=== PATIENT | female | born 1970 | race African-American/Black ===

== ENCOUNTER → 2016-09-17 | Outpatient (CLI) | payer OTHER ==
[2016-05-04 14:58] VITALS: BP 106/65
[~2016-09-17] MED LIST: BACL10TA PO; GABA600T2 PO; HYDR25TA9 PO; LEVO150T5 PO; LISI-334 PO; META800T21 PO; METH-37 PO; METH-38 PO; OXYM10TA28 PO; OXYM40TA PO; TIZA4CAP PO; TIZA4TAB PO; TOPI100T39 PO
--- NOTE | 2016-09-17 12:42 | KCIC ---
PROCEDURE MR of the right shoulder HISTORY Right shoulder pain and stiffness. TECHNIQUE Standard multiplanar sequences are obtained. COMPARISON None FINDINGS Acromioclavicular joint is mildly degenerative. Diffuse rotator cuff tendon thickening and signal compatible with tendinosis. Deep linear undersurface tear of the anterior supraspinatus footprint, 90 percent across. Measures 1 cm in AP diameter. No definite complete through and through violation of the bursal air or retraction. No evidence of subscapularis tendon tear. Trace fluid in the subdeltoid bursa. No evidence of a labral tear. No paralabral cyst. No acute articular cartilage defect. No significant joint effusion. The biceps tendon is intact. No bone lesion or acute fracture. No acute soft tissue injury. IMPRESSION Generalized rotator cuff tendinosis. Small but very deep undersurface tear of the anterior supraspinatus tendon. Electronically signed by: Sabas Haas MD (Sep 17, 2016 12:40:37)
== END | disposition home or self-care (01) ==
LOC: KCIC MRI 08:39
PROVIDERS: ATTEND Orthopaedic Surgery
DX: M25.511 Pain in right shoulder (principal); M25.611 Stiffness of right shoulder, not elsewhere classified
CPT/HCPCS: 73221

== ENCOUNTER 2017-01-05 04:59 | Emergency (ER) | payer OTHER ==
[~2017-01-05] VITALS: Ht 160 cm; Wt 113.4 kg
[2017-01-05] MEDS ORDERED: fentaNYL PF VIAL 100 MCG/2 ML VIAL IV PRN (05:30)
[2017-01-05] MEDS ORDERED: IV NORMAL SALINE 1000ML BAG 1,000 ML IV ONE (05:30)
[2017-01-05 05:31] LABS: NEG OBC UR NEG; POS OBC UR POS
[2017-01-05 05:35] LABS: BILIRUBIN,URINE NEGATIVE (NEG); GLUCOSE,URINE NEGATIVE (NEG); NITRITE,URINE POSITIVE (NEG); PH,URINE 6.5; PROTEIN,URINE 100 mg/dL (NEG-TRACE)
[2017-01-05 05:37] LABS: BASO # 0.1 x10^3/uL (0.0-0.2); BASO % 1 % (0-3); EOS % 2 % (0-3); HEMATOCRIT 40.9 % (36.0-47.0); HEMOGLOBIN 13.8 g/dL (12.0-15.5); LYMPH # 2.3 x10^3/uL (1.0-4.8); LYMPH % 23 % (24-48); MEAN CORPUSCULAR HEMOGLOBIN 32 pg (25-35); MEAN CORPUSCULAR HGB CONC 34 g/dL (31-37); MEAN CORPUSCULAR VOLUME 95 fL (79-100); MONO % 7 % (0-9); NEUT % 68 % (31-73); PLATELET COUNT 242 x10^3/uL (140-400); RED BLOOD COUNT 4.32 x10^6/uL (3.50-5.40); RED CELL DISTRIBUTION WIDTH 14.1 % (11.5-14.5); WHITE BLOOD COUNT 10.3 x10^3/uL (4.0-11.0)
[2017-01-05] MEDS ORDERED: CONTRAST GIVEN MC PRN (05:45)
[2017-01-05 05:49] LABS: BACTERIA,URINE MANY /HPF (0-FEW); RBC,URINE TNTC /HPF (0-2); WBC,URINE TNTC /HPF (0-4)
[2017-01-05 05:52] LABS: CALCIUM 8.5 mg/dL (8.5-10.1); CREATININE 0.9 mg/dL (0.6-1.0); GFR 80.9; POTASSIUM 3.4 mmol/L (3.5-5.1)
[2017-01-05 05:57] LABS: ALBUMIN 3.2 g/dL (3.4-5.0); ALBUMIN/GLOBULIN RATIO 0.7 (1.0-1.7); TOTAL BILIRUBIN 0.1 mg/dL (0.2-1.0); TOTAL PROTEIN 7.8 g/dL (6.4-8.2)
--- NOTE | 2017-01-05 05:58 | PHYS DOC ---
Past Medical History Past Medical History: Fibromyalgia, Hypertension, Other Additional Past Medical Histor: GRAVES DX Past Surgical History: Cholecystectomy, Other Additional Past Surgical Histo: BACK SX , RIGHT ROTATOR CUFF Alcohol Use: Rarely Drug Use: None Adult General Chief Complaint Chief Complaint: ABDOMINAL PAIN HPI HPI Patient is a 46 year old female who presents with right lower quadrant abdominal pain. The patient reports onset of symptoms 3 days ago. Reports nausea, hematuria. Denies fevers/chills, vomiting, diarrhea, constipation, dysuria, vaginal bleeding or discharge. She reports previous history of UTI but states this feels different. History of cholecystectomy. Review of Systems Review of Systems Constitutional: Denies fever or chills HENT: Denies nasal congestion or sore throat Respiratory: Denies cough or shortness of breath Cardiovascular: Denies chest pain GI: Reports abdominal pain, nausea, denies vomiting, bloody stools or diarrhea : Denies dysuria, reports hematuria Musculoskeletal: Denies back pain or joint pain Integument: Denies rash or skin lesions Neurologic: Denies headache, focal weakness or sensory changes Current Medications Current Medications Current Medications Medications (Trade) Dose Ordered Sig/Milton Start Time Stop Time Status Last Admin Dose Admin Ceftriaxone Sodium 50 ml @ 100 mls/hr 1X ONCE 01/05/17 06:15 01/05/17 06:44 DC 01/05/17 06:35 100 MLS/HR Fentanyl Citrate (Fentanyl 2ml Vial) 50 mcg PRN Q15MIN PRN 01/05/17 05:30 01/06/17 05:29 01/05/17 06:01 50 MCG Info (Do NOT chart on this entry -- for MONITORING) 1 each PRN DAILY PRN 01/05/17 05:45 01/07/17 05:44 Iohexol (Omnipaque 300 Mg/ml) 75 ml 1X ONCE 01/05/17 06:00 01/05/17 06:01 DC 01/05/17 06:11 75 ML Ondansetron HCl (Zofran) 4 mg 1X ONCE 01/05/17 06:00 01/05/17 06:01 DC 01/05/17 06:01 4 MG Potassium Chloride (Klor-Con) 40 meq 1X ONCE 01/05/17 07:15 01/05/17 07:16 UNV Sodium Chloride 1,000 ml @ 1,000 mls/hr 1X ONCE 01/05/17 05:30 01/05/17 06:29 DC 01/05/17 06:01 1,000 MLS/HR Allergies Allergies Allergies Coded Allergies Type Severity Reaction Last Updated Verified No Known Drug Allergies 10/06/13 No Physical Exam Physical Exam Constitutional: obese, no acute distress, non-toxic appearance. HENT: Normocephalic, atraumatic, bilateral external ears normal, oropharynx moist, nose normal. Eyes: conjunctiva normal, no discharge. Neck: supple, no stridor. Cardiovascular: RRR, no murmurs, no edema. Lungs & Thorax: LCTAB, no wheezing, no respiratory distress. Abdomen: normal bowel sounds, soft, RLQ tenderness with guarding, no rebound tenderness, no masses or pulsatile masses, nondistended. : normal appearing female external genitalia, normal appearing cervix with closed os, small amount of white discharge in vaginal vault, no CMT, no adnexal mass, right adnexal tenderness is present. Skin: Warm, dry, no erythema, no rash. Back: No CVA tenderness, right lower back tenderness is present. Extremities: No tenderness, no edema. Neurologic: Alert and oriented X 3, no focal deficits noted. Psychologic: Affect normal, judgement normal, mood normal. Current Patient Data Vital Signs Vital Signs Date Time Temp Pulse Resp B/P (MAP) Pulse Ox O2 Delivery O2 Flow Rate FiO2 01/05/17 07:00 70 111/66 (81) 98 Room Air 01/05/17 05:20 99.0 20 99.0 Lab Values Laboratory Tests Test 01/05/17 05:13 01/05/17 05:25 Urine Collection Type Unknown Urine Color Red Urine Clarity Turbid Urine pH 6.5 Urine Specific [place] 1.015 Urine Protein 100 mg/dL (NEG-TRACE) Urine Glucose (UA) Negative mg/dL (NEG) Urine Ketones (Stick) Trace mg/dL (NEG) Urine Blood Large (NEG) Urine Nitrite Positive (NEG) Urine Bilirubin Negative (NEG) Urine Urobilinogen Dipstick 1.0 mg/dL (0.2 mg/dL) Urine Leukocyte Esterase Large (NEG) Urine RBC Tntc /HPF (0-2) Urine WBC Tntc /HPF (0-4) Urine Bacteria Many /HPF (0-FEW) Urine Test Negative (NEG) White Blood Count 10.3 x10^3/uL (4.0-11.0) Red Blood Count 4.32 x10^6/uL (3.50-5.40) Hemoglobin 13.8 g/dL (12.0-15.5) Hematocrit 40.9 % (36.0-47.0) Mean Corpuscular Volume 95 fL (79-100) Mean Corpuscular Hemoglobin 32 pg (25-35) Mean Corpuscular Hemoglobin Concent 34 g/dL (31-37) Red Cell Distribution Width 14.1 % (11.5-14.5) Platelet Count 242 x10^3/uL (140-400) Neutrophils (%) (Auto) 68 % (31-73) Lymphocytes (%) (Auto) 23 % (24-48) L Monocytes (%) (Auto) 7 % (0-9) Eosinophils (%) (Auto) 2 % (0-3) Basophils (%) (Auto) 1 % (0-3) Neutrophils # (Auto) 7.0 x10^3uL (1.8-7.7) Lymphocytes # (Auto) 2.3 x10^3/uL (1.0-4.8) Monocytes # (Auto) 0.7 x10^3/uL (0.0-1.1) Eosinophils # (Auto) 0.2 x10^3/uL (0.0-0.7) Basophils # (Auto) 0.1 x10^3/uL (0.0-0.2) Sodium Level 139 mmol/L (136-145) Potassium Level 3.4 mmol/L (3.5-5.1) L Chloride Level 104 mmol/L (98-107) Carbon Dioxide Level 26 mmol/L (21-32) Anion Gap 9 (6-14) Blood Urea Nitrogen 21 mg/dL (7-20) H Creatinine 0.9 mg/dL (0.6-1.0) Estimated GFR (Cockcroft-Gault) 80.9 BUN/Creatinine Ratio 23 (6-20) H Glucose Level 86 mg/dL (70-99) Calcium Level 8.5 mg/dL (8.5-10.1) Total Bilirubin 0.1 mg/dL (0.2-1.0) L Aspartate Amino Transferase (AST) 10 U/L (15-37) L Alanine Aminotransferase (ALT) 15 U/L (14-59) Alkaline Phosphatase 45 U/L (46-116) L Total Protein 7.8 g/dL (6.4-8.2) Albumin 3.2 g/dL (3.4-5.0) L Albumin/Globulin Ratio 0.7 (1.0-1.7) L Laboratory Tests 01/05/17 05:25 Laboratory Tests 01/05/17 05:25 Microbiology 01/05/17 Wet Prep - Final, Complete EKG EKG [] Radiology/Procedures Radiology/Procedures INDICATION: Abdomen pain. COMPARISON: None TECHNIQUE: Axial CT images obtained through the abdomen and pelvis. Intravenous contrast was utilized. One or more of the following individualized dose reduction techniques were utilized for this examination: 1. Automated exposure control; 2. Adjustment of the mA and/or kV according to patient size; 3. Use of iterative reconstruction technique. FINDINGS: Abdominal aorta not aneurysmal. There may be a small hiatal hernia. Small fat containing inguinal hernias. No intrahepatic bile duct dilation. No peripancreatic edema. Spleen unremarkable. There is some mild distension of the right ureter with subtle indistinctness of the adjacent fat. Calcification in uterus, could be fibroid. The appendix does not appear inflamed. No definite evidence of small bowel obstruction. Bladder unremarkable within limits of CT. Degenerative changes of spine. IMPRESSION: The appendix does not appear inflamed. There is prominence of the right ureter with some adjacent indistinctness of the fat. Would correlate with symptoms within the region. This could be seen with causes such as recently passed right ureter stone or infectious causes such as ureteritis. Electronically signed by: Luis Murray (January 05, 2017 07:00:19) DICTATED and SIGNED BY: LUIS MURRAY MD DATE: 01/05/17 0700 Course & Med Decision Making Course & Med Decision Making Pertinent Labs and Imaging studies reviewed. (See chart for details) The patient presents with abdominal pain. Gave IV fluids, pain medication, antiemetics. Obtained labs, UA, CT. UA shows blood & infection. Will give rocephin here. She is awaiting CT abdomen/pelvis for appendicitis. Will transfer care to Dr. Sage to follow-up results and disposition patient accordingly. She is in stable condition at time of transfer care. Alek SAGE: Patient with CT that shows no acute surgical process but she does have findings consistent with passed stone or pyelonephritis. Her pain is much improved here and she is able tolerate fluids by mouth, difficulty. Patient was given a dose of IV Rocephin here and given she appears well with normal vital signs benign physical exam and there is no signs of an infected stone on the CT she will be discharged with Percocet Zofran Levaquin instructed to drink plenty of fluids and come back to the ER sooner with any worsening pain fevers vomiting or other general concerns. Patient aware and agreeable with plan for discharge and verbalized understanding of the need for short-term follow-up and strict ER return precautions discussed as above. Dragon Disclaimer Dragon Disclaimer This electronic medical record was generated, in whole or in part, using a voice recognition dictation system. Departure Departure Impression: Primary Impression: Pyelonephritis Additional Impressions: Abdominal pain Hypokalemia Disposition: HOME, SELF-CARE Condition: GOOD Referrals: IDA MCCRARY MD (PCP) Patient Instructions: Pyelonephritis, Adult Additional Instructions: MAKE SURE THAT YOU ARE DRINKING PLENTY OF FLUIDS AND EATING A GOOD DIET. TAKE 400MG OF IBUPROFEN EVERY 6 HOURS FOR PAIN AND THE PERCOCET FOR BREAKTHROUGH PAIN. COME BACK TO THE ED SOONER WITH ANY NEW OR WORSENING PAIN, FEVERS, VOMITING, OR OTHER GENERAL CONCERNS. THANK YOU! Scripts Ondansetron (ZOFRAN ODT) 4 Mg Tab.rapdis 4 MG PO BID Y for NAUSEA/VOMITING, #10 TAB Prov: NELA SAGE DO 01/05/17 Oxycodone/Apap 5-325 (PERCOCET 5-325 MG TABLET) 1 Each Tablet 1 TAB PO PRN Q6HRS Y for PAIN, #20 TAB 0 Refills Prov: NELA SAGE DO 01/05/17 Levofloxacin (LEVAQUIN) 750 Mg Tablet 1 TAB PO DAILY, #7 TAB Prov: NELA SAGE DO 01/05/17 Problem Qualifiers ALEK CHAMBERS MD January 05, 2017 05:58 NELA SAGE DO January 05, 2017 07:07
[2017-01-05] MEDS ORDERED: ONDANSETRON PF 4 MG/2 ML VIAL. IV ONE (06:00)
[2017-01-05] MEDS ORDERED: IOHEXOL 300 MG/ML 75 ML VIAL IV ONE (06:00)
--- NOTE | 2017-01-05 06:13 | ACF ---
Admission Forms Criteria URINARY COMPLICATIONS Clinical Indications for Inpatient Care (Place 'X' for any and all applicable criteria): Ongoing inpatient care may be indicated for urinary complications with ANY ONE of the following: [ ]I. Urinary tract infection requiring inpatient care as indicated by ANY ONE of the following(8)(19)(20): [ ]a) Severe symptoms (eg, high fever, severe pain) [ ]b) Vomiting or dehydration requiring ongoing inpatient care [ ]c) IV antibiotic needs that cannot be managed at lower level of care [ ]d) Hemodynamic instability [ ]e) Obstruction of collecting system by stone or tumor [ ]II. Urinary retention requiring drainage or surgery (3)(4)(5)(17)(18) [ ]III. Renal failure (Use Renal Failure Criteria for further information.) [ ]IV. Oliguria(30) [ ]V. Post obstructive diuresis requiring close monitoring of urine output and intravenous compensation for excessive fluid losses(33) Extended stay beyond goal length of stay for primary condition may be needed until ALL of the following are present(3)(4)(5)(8): [ ]a) Renal function (creatinine) at baseline, or daily decreases in creatinine consistent with renal function return [ ]b) Voiding adequately or with urinary catheter or percutaneous suprapubic tube and management regimen in place that is performable at lower level of care. [ ]c) Urine output adequate [ ]d) Fever absent or resolving [ ]e) Infection absent or treatable at next level of care The original [employer] content created by [employer] has been revised. The portions of the content which have been revised are identified through the use of italic text or in bold, and [facility] has neither reviewed nor approved the modified material. All other unmodified content is copyright [employer] Please see references footnoted in the original [employer] edition 2016 DANDRE FU January 05, 2017 06:13
[2017-01-05 07:00] VITALS: BP 111/66
--- NOTE | 2017-01-05 07:02 | RAD ---
INDICATION: Abdomen pain. COMPARISON: None TECHNIQUE: Axial CT images obtained through the abdomen and pelvis. Intravenous contrast was utilized. One or more of the following individualized dose reduction techniques were utilized for this examination: 1. Automated exposure control; 2. Adjustment of the mA and/or kV according to patient size; 3. Use of iterative reconstruction technique. FINDINGS: Abdominal aorta not aneurysmal. There may be a small hiatal hernia. Small fat containing inguinal hernias. No intrahepatic bile duct dilation. No peripancreatic edema. Spleen unremarkable. There is some mild distension of the right ureter with subtle indistinctness of the adjacent fat. Calcification in uterus, could be fibroid. The appendix does not appear inflamed. No definite evidence of small bowel obstruction. Bladder unremarkable within limits of CT. Degenerative changes of spine. IMPRESSION: The appendix does not appear inflamed. There is prominence of the right ureter with some adjacent indistinctness of the fat. Would correlate with symptoms within the region. This could be seen with causes such as recently passed right ureter stone or infectious causes such as ureteritis. Electronically signed by: Roel Peralta (January 05, 2017 07:00:19)
[2017-01-05] MEDS ORDERED: OXYC-323 PO (07:15)
[2017-01-05] MEDS ORDERED: POTASSIUM CHLORIDE 20 MEQ TABLET.ER. PO ONE (07:15)
[2017-01-05] MEDS ORDERED: LEVO750T31 PO (07:15)
[2017-01-05] MEDS ORDERED: ONDA4TAB10 PO (07:15)
== END 2017-01-05 07:25 | disposition home or self-care (01) ==
LOC: ER 04:59
DX: N12 Tubulo-interstitial nephritis, not specified as acute or chronic (principal); E87.6 Hypokalemia; M79.7 Fibromyalgia; I10 Essential (primary) hypertension; E05.00 Thyrotoxicosis with diffuse goiter without thyrotoxic crisis or storm; Z90.49 Acquired absence of other specified parts of digestive tract
CPT/HCPCS: 36415; 74177; 80053; 81001; 81025; 85027; 87086; 87491; 87591; 96361; 96365; 96375; 99285; J0690; J2405; J3010; J7030; Q0111; Q9967

== ENCOUNTER → 2017-03-10 | Outpatient (CLI) | payer OTHER ==
[~2017-03-10] MED LIST changes: +LEVO750T31 PO; +META-21 PO; -META800T21 PO; +ONDA4TAB10 PO; +OXYC-323 PO; -OXYM40TA PO; +OXYM40TA17 PO; -TOPI100T39 PO; +TOPI100T42 PO
--- NOTE | 2017-03-10 13:06 | KCIC ---
MRI Lumbar Spine without contrast History: Low back pain, previous surgery, lumbar radiculopathy Technique: Multiplanar, multi sequential noncontrast MR imaging was performed of the lumbar spine. Contrast: None Comparison: March 17, 2011 Findings: Lumbar vertebral body stature is maintained. There is negligible anterior spondylolisthesis at L4-5. Mild L4-5 degenerative disc disease is greater than previously, again mild disc desiccation at L3-4 and L5-S1. Conus terminates at L1. L1-L2: Spinal canal and the neural foramina are adequate. There is moderate facet hypertrophic change and mild buckling of the ligamentum flavum. L2-L3: There is mild facet hypertrophic change and buckling of the ligamentum flavum. Neural foramina and spinal canal are adequate. L3-L4: There is ojnj-wq-ebzvcchm facet degenerative change and buckling of the ligamentum flavum. Neural foramina and spinal canal are adequate. There is negligible posterior bulge. L4-L5: There is moderate to severe facet degenerative change greater on the right. There is defect of the right lamina. Spinal canal is adequate. Neural foramina are overall adequate. L5-S1: Spinal canal is adequate. There is prominence of epidural fat in the lateral recesses bilaterally. Neural foramina are adequate. There is mild facet hypertrophic change. Impression: 1. There is no significant lumbar spinal stenosis or neural foramina compromise. There is mild degenerative disc disease at L4-5 greater than previously. There is negligible anterior spondylolisthesis at L4-5 at which there is facet degenerative change. Electronically signed by: Samuel Dodson MD (03/10/2017 1:02 PM) [facility]
== END | disposition home or self-care (01) ==
LOC: KCIC MRI 12:14
PROVIDERS: ATTEND Family Medicine
DX: M51.16 Intervertebral disc disorders with radiculopathy, lumbar region (principal); M43.16 Spondylolisthesis, lumbar region
CPT/HCPCS: 72148

== ENCOUNTER → 2017-06-22 | Outpatient (CLI) | payer OTHER ==
[~2017-06-22] MED LIST changes: +IOHEXOL 240 MG/ML 50ML VIAL. PO ONE; +IOHEXOL 300 MG/ML 100ML VIAL. IV ONE
--- NOTE | 2017-06-22 11:56 | KCIC ---
CT abdomen and pelvis with contrast Indication: . Abdomen pain for months. Left-sided pain. Bloating, nausea and diarrhea. Cholecystectomy.. Technique: Intravenous contrast is given. Oral contrast was given. Comparison: January 05, 2017. Exposure: One or more of the following individualized dose reduction techniques were utilized for this examination: 1. Automated exposure control 2. Adjustment of the mA and/or kV according to patient size 3. Use of iterative reconstruction technique. FINDINGS: Lower thorax: Small calcified granuloma in the anterior left lung base. Pneumoperitoneum:No gross pneumoperitoneum. Liver: Mildly hypodense, compatible with mild fatty infiltration. Spleen: Unremarkable Pancreas: Unremarkable Adrenals:No evidence of mass. Kidneys:Unremarkable Gallbladder: Surgically absent. Aorta: Abdominal aorta is nonaneurysmal Lymph nodes: No significant enlargement GI tract: Small hiatal hernia. Scattered small diverticula are noted. There is no evidence of pericolonic inflammatory type changes Appendix:Visualized, appears within normal limits. Ascites: No gross ascites. Urinary bladder: Not opacified, but no apparent abnormality. Small calcification in the left uterus, compatible with fibroid. Bones: No destructive process. IMPRESSION: 1. No acute findings in the abdomen or pelvis. 2. Mild hepatic steatosis. Electronically signed by: Sabas Haas MD (06/22/2017 11:53 AM) [facility]
== END | disposition home or self-care (01) ==
LOC: KCIC CT 09:30
PROVIDERS: ATTEND Nurse Practitioner Family
DX: K76.0 Fatty (change of) liver, not elsewhere classified (principal); F17.200 Nicotine dependence, unspecified, uncomplicated
CPT/HCPCS: 74177; Q9966; Q9967

== ENCOUNTER → 2018-04-06 | Outpatient (CLI) | payer OTHER ==
[~2018-04-06] MED LIST changes: -IOHEXOL 240 MG/ML 50ML VIAL. PO ONE; -IOHEXOL 300 MG/ML 100ML VIAL. IV ONE
--- NOTE | 2018-04-06 17:07 | KCIC ---
MR of the right hip Indication: Right hip pain in recent months. Abductor tendinitis. Technique: Standard multiplanar sequences are obtained. Findings: Artifact: No significant image degradation. Bones: No bone lesion, acute fracture or acute bone marrow edema. No femoral head osteonecrosis. Effusion: No significant effusion Cartilage: No evidence of acute cartilage defect or advanced DJD. Labrum: No evidence of labral tear or para labral cyst Gluteus minimus tendon: Intact Gluteus medius tendon: Intact Hamstring tendon: Intact Iliopsoas tendon: Intact Rectus femoris tendon attachment:Intact Soft tissue:No significant acute findings. Large kjcdj-es-kozo coronal survey sequence demonstrates no additional acute findings in the qjhaa-wj-cyys. Impression: No acute findings or internal derangement. MR of the left hip Indication: Left hip pain for over one year. Abductor tendinitis. Technique: Standard multiplanar sequences are obtained. Findings: Artifact: No significant image degradation. Bones: No bone lesion, acute fracture or acute bone marrow edema. No femoral head osteonecrosis. Effusion: No significant effusion Cartilage: No evidence of acute cartilage defect or advanced DJD. Labrum: No evidence of labral tear or para labral cyst Gluteus minimus tendon: Minimal signal adjacent to the insertion may indicate mild tendinosis, but the tendon itself is intact. Gluteus medius tendon: Minimal signal adjacent to the insertion. Hamstring tendon: Intact Iliopsoas tendon: Intact Rectus femoris tendon attachment:Intact Soft tissue: Multiple heterogeneous nodules within the uterus, would most typically represent fibroids. Cystic-type lesions identified in the region of the cervix and lower uterine segment, likely nabothian cysts. Impression: 1. Findings suggest very mild left gluteus minimus and medius tendinosis, without tear. 2. Uterine heterogeneity with nodules, would most commonly be due to fibroids. Electronically signed by: Sabas Haas MD (04/06/2018 5:03 PM) [facility]
--- NOTE | 2018-04-06 17:07 | KCIC ---
MR of the right hip Indication: Right hip pain in recent months. Abductor tendinitis. Technique: Standard multiplanar sequences are obtained. Findings: Artifact: No significant image degradation. Bones: No bone lesion, acute fracture or acute bone marrow edema. No femoral head osteonecrosis. Effusion: No significant effusion Cartilage: No evidence of acute cartilage defect or advanced DJD. Labrum: No evidence of labral tear or para labral cyst Gluteus minimus tendon: Intact Gluteus medius tendon: Intact Hamstring tendon: Intact Iliopsoas tendon: Intact Rectus femoris tendon attachment:Intact Soft tissue:No significant acute findings. Large qiwan-qr-[id number] coronal survey sequence demonstrates no additional acute findings in the aymeu-mj-[id number]. Impression: No acute findings or internal derangement. MR of the left hip Indication: Left hip pain for over one year. Abductor tendinitis. Technique: Standard multiplanar sequences are obtained. Findings: Artifact: No significant image degradation. Bones: No bone lesion, acute fracture or acute bone marrow edema. No femoral head osteonecrosis. Effusion: No significant effusion Cartilage: No evidence of acute cartilage defect or advanced DJD. Labrum: No evidence of labral tear or para labral cyst Gluteus minimus tendon: Minimal signal adjacent to the insertion may indicate mild tendinosis, but the tendon itself is intact. Gluteus medius tendon: Minimal signal adjacent to the insertion. Hamstring tendon: Intact Iliopsoas tendon: Intact Rectus femoris tendon attachment:Intact Soft tissue: Multiple heterogeneous nodules within the uterus, would most typically represent fibroids. Cystic-type lesions identified in the region of the cervix and lower uterine segment, likely nabothian cysts. Impression: 1. Findings suggest very mild left gluteus minimus and medius tendinosis, without tear. 2. Uterine heterogeneity with nodules, would most commonly be due to fibroids. Electronically signed by: Sabas Haas MD (04/06/2018 5:03 PM) [facility]
== END | disposition home or self-care (01) ==
LOC: KCIC MRI 11:42
PROVIDERS: ATTEND Orthopaedic Surgery Sports Medicine
DX: M76.891 Other specified enthesopathies of right lower limb, excluding foot (principal); M76.892 Other specified enthesopathies of left lower limb, excluding foot; I10 Essential (primary) hypertension; E87.6 Hypokalemia; N85.8 Other specified noninflammatory disorders of uterus; Z87.891 Personal history of nicotine dependence; Z90.49 Acquired absence of other specified parts of digestive tract
CPT/HCPCS: 73721

== ENCOUNTER → 2018-10-04 | Day surgery (SDC) | payer OTHER ==
[~2018-10-04] MED LIST changes: +BETH5TAB PO; -GABA600T2 PO; +GABA600T7 PO; +HYDR-2145 PO; -HYDR25TA9 PO; +IV RINGERS,LACTATED 1000ML 1,000 ML IV SCH; +LEVO112T4 PO; +LIDOCAINE 1% PF 2 ML VIAL. ID PRN; +LISI1TAB7 PO; +MIDAZOLAM HCL/PF 2 MG/2 ML VIAL. IV PRN; -OXYC-323 PO; +OXYC1TAB15 PO; +PANT40GR PO; +PROPOFOL 20 ML IV ONE; -TIZA4TAB PO; +TIZA4TAB2 PO; +TRAZ-118 PO; +fentaNYL PF VIAL 100 MCG/2 ML VIAL IV PRN
--- NOTE | 2018-10-04 13:00 | PDOC1 ---
History and Physical Date of Admission Date of Admission DATE: 10/04/18 TIME: 12:51 Source Source: Chart review, Patient History of Present Illness History of Present Illness 48 y/o female recently evaluated at [facility] for chest pain; catheterization negative for coronary disease. H/o reflux esophagitis, though ongoing issues. Requests further evaluation. Diarrhea since cholecystectomy; better with recent addition of Colestid. Historically normal colonoscopy at [facility] last year. Past Medical History Cardiovascular: HTN GI: Diverticulosis Psych: Anxiety Musculoskeletal: Osteoarthritis Endocrine: Hyperthyroidism, Hypothyroidism Past Surgical History Past Surgical History: Arthroscopy, Cholecystectomy, Other (thyroidectomy) Family History Family History: Coronary Artery Disease Social History ALCOHOL: occassional Drugs: None Current Medications Current Medications Active Scripts Active Bethanechol Chloride 5 Mg Tablet 5 Mg PO PRN BFRMEAL PRN 30 Days Reported Tizanidine Hcl 4 Mg Tablet 4 Mg PO TID PRN Protonix (Pantoprazole Sodium) 40 Mg Granpkt.dr 40 Mg PO BID Trazodone Hcl 50 Mg Tablet 50 Mg PO QHS Levothyroxine Sodium 112 Mcg Tablet 112 Mcg PO DAILY Lisinopril-Hctz 20-25 Mg Tab (Lisinopril/Hydrochlorothiazide) 1 Each Tablet 20- 25 Mg PO DAILY Allergies Allergies: Coded Allergies: No Known Drug Allergies (Unverified , 10/04/18) ROS Review of System Otherwise negative. Physical Exam General: Alert, Oriented X3, Cooperative, No acute distress Lungs: Clear to auscultation Heart: S1S2, RRR, no gallops, no murmurs Abdomen: Normal bowel sounds, Soft, No tenderness, No hepatosplenomegaly, No masses Rectal Exam: not examined Extremities: No cyanosis, No edema Skin: No significant lesion Neuro: Normal gait, Normal speech, Strength at 5/5 X4 ext, Normal tone, Sensation intact, Cranial nerves 3-12 NL, Reflexes 2+ Psych/Mental Status: Mental status NL, Mood NL VTE Prophylaxis Ordered VTE Prophylaxis Devices: No VTE Pharmacological Prophylaxi: No Assessment/Plan Assessment/Plan IMP: NCCP/GERD PLAN: EGD. ISABEL FRANK MD Oct 04, 2018 13:00
--- NOTE | 2018-10-04 13:25 | PDOC4 ---
PROCEDURE Procedure EGD/biopsies Indication: NCCP/GERD Meds: per anesthesia Findings: E--Healed esophagitis, baseline grade indeterminate, at 40cm. G--Mild patchy erythema, pre-pyloric, biopsied. D--Normal to second portion. Shilpa. well. IMP: Reflux esophagitis, healed, but with persistent symptoms. Non-specific pre-pyloric erythema REC: Continue PPI; only a week on better dosing and may take longer for noticeable response. Await biopsies. F/u in 2 weeks. If no/poor response to better dosing of PPI, consider GES. ISABEL FRANK MD Oct 04, 2018 13:25
[2018-10-04 13:48] VITALS: BP 131/78
--- NOTE | 2018-10-05 16:07 | PATHOLOGY ---
[facility] Accession Number: [id number] . 01 Material submitted: . ANTRUM BIOSPY . 01 Clinical history: . Noncardiac chest pain . 02 Diagnosis: Gastric biopsy, antrum: - Mild superficial chronic gastritis. [facility]/10/05/2018 . 02 Comment: Sections of the gastric biopsy reveal segments of gastric body and antral/body transition mucosa showing focal congestion and mild superficial chronic inflammation. A properly controlled immunoperoxidase stain for Helicobacter is negative for Helicobacter organisms. (JPM:pit 10/05/2018) . Special stain performed: Immunoperoxidase for Helicobacter . 02 Electronically signed: . Anthony Welsh MD, Pathologist NPI- [id number] . 01 Gross description: . Received in formalin labeled "Benz, Amarilys, antrum BX," are 2 segments of russell soft tissue measuring 1.2 x 0.2 x 0.2 cm in aggregate dimensions and ranging from 0.5 to 0.7 cm in maximum dimension. The specimen is submitted entirely in cassette A1. (TSD; 10/04/2018) TOB/TOB . 02 Pathologist provided ICD-10: K29.30 . 02 CPT . 820614 Specimen Comment: A courtesy copy of this report has been sent to Specimen Comment: [phone], . Specimen Comment: Report sent to / DR MCCRARY Specimen Comment: A duplicate report has been generated due to demographic updates. Performed at: 01 [facility] [address] [id number] MD Nimesh Jon MD Phone: [phone] Performed at: 02 [facility] [address] [place], [place] [id number] MD Atnhony Welsh MD Phone: [phone]
== END | disposition home or self-care (01) ==
LOC: SURG 12:41
PROVIDERS: ATTEND Internal Medicine Gastroenterology
DX: K29.30 Chronic superficial gastritis without bleeding (principal); K21.0 Gastro-esophageal reflux disease with esophagitis; K31.89 Other diseases of stomach and duodenum; I10 Essential (primary) hypertension; M79.7 Fibromyalgia; K58.9 Irritable bowel syndrome, unspecified; M19.90 Unspecified osteoarthritis, unspecified site; Z85.850 Personal history of malignant neoplasm of thyroid; Z82.49 Family history of ischemic heart disease and other diseases of the circulatory system; Z83.79 Family history of other diseases of the digestive system; F17.210 Nicotine dependence, cigarettes, uncomplicated; Z72.89 Other problems related to lifestyle; Z79.899 Other long term (current) drug therapy
CPT/HCPCS: 43239; J2704; 88305

== ENCOUNTER → 2018-10-22 | Outpatient (CLI) | payer OTHER ==
[2018-10-04 13:48] VITALS: BP 131/78
[~2018-10-22] MED LIST changes: -IV RINGERS,LACTATED 1000ML 1,000 ML IV SCH; -LIDOCAINE 1% PF 2 ML VIAL. ID PRN; -MIDAZOLAM HCL/PF 2 MG/2 ML VIAL. IV PRN; -PROPOFOL 20 ML IV ONE; +TIZA4TAB PO; -TIZA4TAB2 PO; -fentaNYL PF VIAL 100 MCG/2 ML VIAL IV PRN
--- NOTE | 2018-10-22 17:28 | KCIC ---
Chest, PA and Lateral: Technique: PA and lateral views of the chest were obtained. History: Chest pain, respiratory tract infection. Comparison: 09/17/2018. Findings: Low lung volumes and technique accentuates heart size and pulmonary vascularity. Mild cardiomegaly. There is mild prominent appearing bilateral interstitial lung markings. Mild bibasilar lung airspace opacities likely atelectasis or infiltrates. IMPRESSION: 1. Probable mild congestive changes. 2. Mild bibasilar lung airspace opacities likely atelectasis or infiltrates. Electronically signed by: Jefferson Henning MD (10/22/2018 5:25 PM) [facility]
== END | disposition home or self-care (01) ==
LOC: KCIC 14:54
PROVIDERS: ATTEND Family Medicine
DX: J06.9 Acute upper respiratory infection, unspecified (principal); I51.7 Cardiomegaly; R91.8 Other nonspecific abnormal finding of lung field
CPT/HCPCS: 71046

== ENCOUNTER → 2018-11-11 | Outpatient (CLI) | payer OTHER ==
[2018-10-04 13:48] VITALS: BP 131/78
--- NOTE | 2018-11-11 14:18 | RAD ---
Gastric Emptying Study 11/11/2018 Indication: Gastroesophageal reflux disease Procedure: Anterior and posterior projection static images are obtained over the stomach following oral administration of 2 mCi of 99 M technetium sulfur colloid in a solid meal.Time points include an immediate baseline, and 1, 2, 3, and 4 hours post ingestion. Findings: There is progressive emptying of the stomach on sequential images. Percentage retention at... One hour is 26% (normal 34.8-91%). Two hours 7% (normal 2.7-60%). Three hours 3% (normal 0.5-28%). Four hours 0% (normal 0-10%). Impression: 1.Mildly rapid emptying at 1 hour time point. Correlate with clinical evidence of developing syndrome. 2. Otherwise normal gastric emptying times. Consensus Recommendations for Gastric Emptying Scintigraphy: A Joint Report of the [place] [employer] Society and the Society of Nuclear Medicine: J. Nucl. Med. Technol. October 2007 vol. 36 no. 1 44-54 Grading for severity of delayed GE based on the 4-h value: grade 1 (mild): 11?20% retention at 4 h grade 2 (moderate): 21?35% retention at 4 h grade 3 (severe): 36?50% retention at 4 h grade 4 (very severe): >50% retention at 4 h. Electronically signed by: Tate Murdock MD (11/11/2018 2:15 PM) [facility]
== END | disposition home or self-care (01) ==
LOC: NM 10:58
PROVIDERS: ATTEND Internal Medicine Gastroenterology
DX: K21.9 Gastro-esophageal reflux disease without esophagitis (principal)
CPT/HCPCS: 78264; A9541

== ENCOUNTER → 2019-03-29 | Outpatient (CLI) | payer OTHER ==
[2018-10-04 13:48] VITALS: BP 131/78
[~2019-03-29] MED LIST changes: -TIZA4TAB PO; +TIZA4TAB2 PO
--- NOTE | 2019-03-29 15:52 | RAD ---
EXAM: Left upper extremity venous Doppler sonogram. HISTORY: Neuropathy. Pain. TECHNIQUE: Flores scale and color Doppler sonographic evaluation of the left upper extremity veins with spectral waveform analysis was performed. FINDINGS: There is normal color flow, normal compressibility and there are normal spectral waveforms in the left upper extremity veins. IMPRESSION: No Doppler evidence of left upper extremity venous thrombosis. Electronically signed by: Rama Mott MD (03/29/2019 3:49 PM) [place] [id number]
== END | disposition home or self-care (01) ==
LOC: US 14:19
PROVIDERS: ATTEND Nurse Practitioner Family
DX: G62.9 Polyneuropathy, unspecified (principal)
CPT/HCPCS: 93971

== ENCOUNTER → 2020-04-19 | Outpatient (CLI) | payer OTHER ==
[2018-10-04 13:48] VITALS: BP 131/78
[~2020-04-19] MED LIST changes: +CYAN50008 PO; -LEVO112T4 PO; +LEVO112T49 PO; +LISI1TAB20 PO; -LISI1TAB7 PO; +MELO15TA23 PO; +vitamin d PO
== END | disposition home or self-care (01) ==
LOC: LAB 14:29
PROVIDERS: ATTEND Orthopaedic Surgery Sports Medicine
DX: Z20.828 Contact with and (suspected) exposure to other viral communicable diseases (principal)
CPT/HCPCS: U0003-CS

== ENCOUNTER 2020-04-23 06:18 | Day surgery (SDC) | payer OTHER ==
[~2020-04-23] VITALS: Ht 160 cm; Wt 132.0 kg
[~2020-04-23 06:18] MED LIST changes: +ceFAZolin SODIUM 3 GM in IV DEXTROSE 5% 100ML 100 ML IV PRN
[2020-04-23] MEDS ORDERED: LIDOCAINE 2% PF 5 ML VIAL. ONE (06:51)
[2020-04-23] MEDS ORDERED: ONDANSETRON PF 4 MG/2 ML VIAL. ONE (06:51)
[2020-04-23] MEDS ORDERED: PROPOFOL 10 MG/ML (20ML) VIAL. IV ONE ×3 (06:51→08:29)
[2020-04-23] MEDS ORDERED: DEXAMETHASONE SOD PHOS 4 MG/ML VIAL ONE (06:51)
[2020-04-23] MEDS ORDERED: PROCHLORPERAZINE 10 MG/2 ML VIAL. IV PRN (07:00)
[2020-04-23] MEDS ORDERED: LIDOCAINE 1% PF 2 ML VIAL. ID PRN (07:00)
[2020-04-23] MEDS ORDERED: ONDANSETRON PF 4 MG/2 ML VIAL. IV PRN (07:00)
[2020-04-23] MEDS ORDERED: HYDROmorphone 2 MG/ML VIAL IV PRN (07:00)
[2020-04-23] MEDS ORDERED: IV RINGERS,LACTATED 1000ML 1,000 ML IV SCH (07:00)
[2020-04-23] MEDS ORDERED: MORPHINE SULFATE 2 MG/ML VIAL. IV PRN (07:00)
[2020-04-23] MEDS ORDERED: fentaNYL PF VIAL 100 MCG/2 ML VIAL IV PRN (07:00)
[2020-04-23] MEDS ORDERED: LIDOCAINE 1% Multi-Dose 20 ML VIAL. ONE (07:08)
[2020-04-23] MEDS ORDERED: BUPIVACAINE MPF 0.5% 30 ML VIAL. ONE (07:08)
[2020-04-23] MEDS ORDERED: fentaNYL PF VIAL 100 MCG/2 ML VIAL ONE ×2 (07:37→08:57)
[2020-04-23] MEDS ORDERED: FAMOTIDINE 20 MG/2 ML VIAL ONE (08:01)
[2020-04-23] MEDS ORDERED: SEVOFLURANE 61 TO 120 MINUTES. IH ONE (08:23)
--- NOTE | 2020-04-23 08:35 | DISCH ---
DISCHARGE INSTRUCTIONS Condition on Discharge Condition on Discharge: Stable Activity After Discharge Activity Instructions for Disc: Activity as tolerated Bathing Instructions: Shower-keep dressing dry Weight Bearing Status after Di: As tolerated Diet after Discharge Diet after Discharge: Cardiac, Regular Wound Incision Care Wound/Incision Care: Ice to area for comfort, Keep wound/cast CDI, Keep wound elevated Other wound/incision instructi: Okay to change dressing after 2 to 3 days Contacting the DRClaudia after DC Call your doctor for: Concerns you may have Follow-Up Follow up with: David in 2 wks PARUL DAVENPORT II, MD Apr 23, 2020 08:35
--- NOTE | 2020-04-23 08:40 | PDOC4 ---
Operative Note Operative Note Date of procedure: 04/23/2020 Surgeon: Otto Davenport Warp Placer: Clemente Morrow Preoperative diagnosis: Left cubital tunnel syndrome Postoperative diagnosis: Same Procedure performed: Open left cubital tunnel release Anesthesia: General Blood loss: 20 mL Tourniquet time: 21 minutes Complications: None Reason for procedure: Patient is a very pleasant 49-year-old female who is clinical and electromyographic examinations were consistent with the above preoperative diagnosis. She had tried and failed conservative therapies including bracing, anti-inflammatories, and her problem was getting worse. Therefore we had a discussion of the risks, benefits, and alternatives and she wished to proceed. Description of procedure: Patient was greeted in the preoperative holding area where the correct extremity was verified and marked. She is taken to the operative theater antibiotics were started as she was brought back. Once in the operating room, she was transferred gently supine to the operating table and had successful induction of a general anesthetic. We she was then secured to the bed with all pressure points padded. Nonsterile tourniquet was taped in place to her left upper arm. We then proceeded prep and drape left upper extremity in her usual sterile fashion including our preoperative timeout. After this, I palpated marked surface anatomy and zaida a line for my planned incision. Extremity was exsanguinated with an Esmarch and tourniquet insufflated to 250 mmHg. I then incised skin with a scalpel and dissected through her subcutaneous tissue with tenotomy scissors and bipolar cautery. Bipolar cautery was used for hemostasis as I proceeded. I placed a self-retaining retractor and incised f ascia with my tenotomy scissors in line with the skin incision. Identified her ulnar nerve posterior to her medial epicondyle and released the overlying tissue into her triceps. I then released the cubital tunnel distally into the flexor muscle mass with my tenotomy scissors. I then palpated along the course of the nerve with the tip of the tenotomies to help and tried accomplish a complete release and I was confident I had. I then took the elbow through range of motion repeatedly and noted no subluxation of the ulnar nerve. After this, the wound was thoroughly irrigated out with sterile fluid. Inverted interrupted 2 oh was used in a multilayered fashion for wound closure followed by running 3-0 Monocryl in a buried subcuticular fashion. After this, local anesthetic was injected in the hollie-incisional area. The arm was cleansed and dried and a soft bulky dressing was applied from her hand to her axilla. Prior to wound closure, tourniquet had been let down and hemostasis ensured. All counts were correct x2 prior to wound closure as well. Procedure was performed with loupe magnification. At the inclusion, she is awake from anesthesia and transferred gently supine to the recovery cart and taken to PACU in stable and extubated condition. Postoperative plan is to discharge her home. Wound care was discussed and given in written form with her and her family. I will see her joay k in 2 weeks, sooner should a problem arise OTTO DAVENPORT II, MD Apr 23, 2020 08:40
[2020-04-23] MEDS ORDERED: oxyCODONE/APAP 5/325 1 TAB TABLET PO ONE (08:45)
[2020-04-23] MEDS ORDERED: OXYC-325 PO (08:54)
[2020-04-23] MEDS ORDERED: DOCU-109 PO (08:55)
[2020-04-23] MEDS: fentaNYL PF VIAL 100 MCG/2 ML VIAL IV PRN ×2 (09:06→09:16)
[2020-04-23] MEDS ORDERED: ONDA8TAB9 PO/SL (09:08)
[2020-04-23 09:35] VITALS: BP 143/77
== END 2020-04-23 10:40 | disposition home or self-care (01) ==
LOC: SURG 06:18
PROVIDERS: ATTEND Orthopaedic Surgery Sports Medicine
DX: G56.22 Lesion of ulnar nerve, left upper limb (principal); K21.9 Gastro-esophageal reflux disease without esophagitis; F17.210 Nicotine dependence, cigarettes, uncomplicated; Z88.8 Allergy status to other drugs, medicaments and biological substances; Z79.899 Other long term (current) drug therapy
CPT/HCPCS: 64718; 81025; A7015; J1100; J2405; J2704; J3010; J3490

== ENCOUNTER → 2020-05-18 | Outpatient (CLI) | payer OTHER ==
[2020-04-23 09:35] VITALS: BP 143/77
[~2020-05-18] MED LIST changes: +DOCU-109 PO; +ONDA8TAB9 PO/SL; +OXYC-325 PO; +[UNRECOGNIZED DRUG - CODE] PO; -ceFAZolin SODIUM 3 GM in IV DEXTROSE 5% 100ML 100 ML IV PRN
[2020-05-18 13:54] LABS: BASO % 1 % (0-3); EOS # 0.1 x10^3/uL (0.0-0.7); EOS % 2 % (0-3); HEMATOCRIT 40.4 % (36.0-47.0); HEMOGLOBIN 13.6 g/dL (12.0-15.5); LYMPH # 1.4 x10^3/uL (1.0-4.8); LYMPH % 22 % (24-48); MEAN CORPUSCULAR HEMOGLOBIN 31 pg (25-35); MEAN CORPUSCULAR HGB CONC 34 g/dL (31-37); MEAN CORPUSCULAR VOLUME 93 fL (79-100); MONO # 0.4 x10^3/uL (0.0-1.1); MONO % 7 % (0-9); NEUT # 4.3 x10^3/uL (1.8-7.7); NEUT % 69 % (31-73); PLATELET COUNT 231 x10^3/uL (140-400); RED BLOOD COUNT 4.33 x10^6/uL (3.50-5.40); RED CELL DISTRIBUTION WIDTH 14.9 % (11.5-14.5); WHITE BLOOD COUNT 6.3 x10^3/uL (4.0-11.0)
--- NOTE | 2020-05-18 13:55 | EKG ---
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
[2020-05-18 14:45] LABS: ALBUMIN 3.3 g/dL (3.4-5.0); ALBUMIN/GLOBULIN RATIO 0.9 (1.0-1.7); CALCIUM 8.7 mg/dL (8.5-10.1); CREATININE 0.9 mg/dL (0.6-1.0); GFR 79.9; POTASSIUM 3.9 mmol/L (3.5-5.1); TOTAL BILIRUBIN 0.2 mg/dL (0.2-1.0); TOTAL PROTEIN 7.1 g/dL (6.4-8.2)
[2020-05-18 14:51] LABS: FREE T4 1.34 ng/dL (0.76-1.46); THYROID STIM HORMONE (TSH) 0.956 uIU/mL (0.358-3.74)
--- NOTE | 2020-05-18 15:10 | RAD ---
CHEST PA LATERAL INDICATION: Reason: PRE-OP EVAL FOR HYSTERECTOMY / Spl. Instructions: / History: . COMPARISON STUDY: 10/22/2018. FINDINGS: Lungs: Normal lung volume. No pulmonary mass or consolidation. The tracheobronchial tree and hilar structures are normal. Pleura: No pleural effusion or pneumothorax. Heart and Mediastinum: The cardiomediastinal silhouette is normal. The great vessels of the thorax are normal. Bones and Soft Tissues: The bones and soft tissues are within normal limits. IMPRESSION: No acute cardiopulmonary process. Electronically signed by: Samuel Almanza MD (05/18/2020 3:07 PM) [facility]
--- NOTE | 2020-05-21 15:19 | NUR ---
Faxed pretesting results to Dr Ovalle. No further orders regarding EKG per Dr Jean. Medical clearance from patient's primary doctor is on the chart as well
== END | disposition home or self-care (01) ==
LOC: SURGPAT 13:13
PROVIDERS: ATTEND Obstetrics & Gynecology
DX: Z01.812 Encounter for preprocedural laboratory examination (principal); I10 Essential (primary) hypertension; E03.9 Hypothyroidism, unspecified; D21.9 Benign neoplasm of connective and other soft tissue, unspecified; Z20.828 Contact with and (suspected) exposure to other viral communicable diseases
CPT/HCPCS: 71046; 80053; 84439; 84443; 85025; 93005; U0003

== ENCOUNTER 2020-05-24 06:06 | Observation (INO) | payer OTHER ==
[2020-05-24] VITALS (10 sets, daily range): BP systolic 119–152; BP diastolic 67–89
[~2020-05-24] VITALS: Ht 160 cm; Wt 131.0 kg
[~2020-05-24 06:06] MED LIST changes: +ceFAZolin SODIUM 3 GM in IV DEXTROSE 5% 100ML 100 ML IV PRN
[2020-05-24] MEDS: IV RINGERS,LACTATED 1000ML 1,000 ML IV SCH ×3 (06:45→10:37)
[2020-05-24] MEDS ORDERED: HYDROmorphone 2 MG/ML VIAL IV PRN (07:00)
[2020-05-24] MEDS ORDERED: fentaNYL PF VIAL 100 MCG/2 ML VIAL IV PRN ×2 (07:00)
[2020-05-24] MEDS ORDERED: ONDANSETRON PF 4 MG/2 ML VIAL. IV PRN ×2 (07:00→10:15)
[2020-05-24] MEDS ORDERED: ONDANSETRON PF 4 MG/2 ML VIAL. ONE (07:03)
[2020-05-24] MEDS ORDERED: ROCURONIUM 50 MG/5 ML VIAL. ONE ×2 (07:03→08:07)
[2020-05-24] MEDS ORDERED: DEXAMETHASONE SOD PHOS 4 MG/ML VIAL ONE (07:03)
[2020-05-24] MEDS ORDERED: PROPOFOL 10 MG/ML (20ML) VIAL. IV ONE (07:03)
[2020-05-24] MEDS ORDERED: LIDOCAINE 2% PF 5 ML VIAL. ONE (07:03)
[2020-05-24] MEDS ORDERED: fentaNYL PF VIAL 250 MCG/5 ML VIAL ONE (07:03)
[2020-05-24] MEDS ORDERED: MIDAZOLAM HCL/PF 2 MG/2 ML VIAL. ONE (07:03)
[2020-05-24] MEDS ORDERED: BUPIVACAINE-EPI 0.5%-1:200000 MPF 30 ML VIAL. ONE (07:13)
[2020-05-24] MEDS ORDERED: INDIGOTINDISULFONATE SODIUM 40 MG/5 ML AMPUL. ONE (07:14)
[2020-05-24] MEDS ORDERED: ESTROGENS, CONJ VAGINAL CREAM 30GM TUBE. ONE (07:14)
[2020-05-24] MEDS ORDERED: GLYCOPYRROLATE 1 MG/5 ML VIAL. ONE (08:42)
[2020-05-24] MEDS ORDERED: NEOSTIGMINE METHYLSULFATE 5 MG/5 ML SYRINGE. ONE (08:42)
[2020-05-24] MEDS ORDERED: SEVOFLURANE 61 TO 120 MINUTES. IH ONE (09:13)
[2020-05-24] MEDS ORDERED: KETOROLAC 30 MG/ML VIAL. ONE ×2 (09:43→09:51)
--- NOTE | 2020-05-24 10:13 | PDOC ---
BRIEF OPERATIVE NOTE Date: May 24, 2020 Pre-Op Diagnosis menorrhagia, uterine fibroids Post-Op Diagnosis same Procedure Performed LAVH/LSO/right salpingectomy Surgeon Dr. Erika Jin Ehs Manager JOSESITO Dao Anesthesiologist Dr. Jean Anesthesia Type: General Blood Loss 360cc IV Fluid 2L Urine Output 100cc clear and concentrated Specimens Obtained cervix, uterus, right tube and left tube and ovary Findings enlarged fibroid uterus, normal bilateral tubes and ovaries Complications none Operative Note [id number] ERIKA JIN MD May 24, 2020 10:13
[2020-05-24] MEDS ORDERED: diphenhydrAMINE 50 MG/ML VIAL IV PRN (10:15)
[2020-05-24] MEDS ORDERED: MORPHINE SULFATE 2 MG/ML VIAL. IV PRN (10:15)
[2020-05-24] MEDS ORDERED: CALCIUM CARBONATE 500 MG TAB.CHEW PO PRN (10:15)
[2020-05-24] MEDS ORDERED: MAG HYDROX/ALUMINUM HYD/SIMETH 30 ML ORAL.SUSP PO PRN (10:15)
[2020-05-24] MEDS ORDERED: diphenhydrAMINE HCL 25 MG CAPSULE PO PRN (10:15)
[2020-05-24] MEDS ORDERED: 0.9 % SODIUM CHLORIDE 10 ML DISP.SYRIN. IV PRN (10:15)
[2020-05-24] MEDS ORDERED: SIMETHICONE 80 MG TAB.CHEW PO PRN (10:15)
[2020-05-24] MEDS ORDERED: MAGNESIUM HYDROXIDE 2,400 MG/30 ML ORAL.SUSP. PO PRN (10:15)
[2020-05-24] MEDS ORDERED: LACTULOSE 20 GM/30 ML SOLUTION. PO PRN (10:15)
[2020-05-24] MEDS ORDERED: HYDROcodone/APAP 5/325MG 1 TAB TABLET PO PRN (10:15)
[2020-05-24] MEDS ORDERED: NALOXONE 0.4 MG/ML VIAL. IV PRN (10:15)
[2020-05-24] MEDS ORDERED: ZOLPIDEM 5 MG TABLET. PO PRN (10:15)
[2020-05-24] MEDS: MORPHINE SULFATE 2 MG/ML VIAL. IV PRN ×4 (10:27→11:07)
--- NOTE | 2020-05-24 10:31 | OP ---
DATE OF SURGERY: 05/24/2020 PREOPERATIVE DIAGNOSES: Menorrhagia and enlarged fibroid uterus. POSTOPERATIVE DIAGNOSES: Menorrhagia and enlarged fibroid uterus. PROCEDURE: Laparoscopic-assisted vaginal hysterectomy, left salpingo-oophorectomy, right salpingectomy. SURGEON: Fam Ovalle MD COMMERCIAL RELIEF DRIVER: JOSESITO Dao ANESTHESIOLOGIST: Terrence Jean MD ANESTHESIA: General. BLOOD LOSS: 360 mL. URINE OUTPUT: 100 mL, clear and concentrated via Martinez catheter. INTRAVENOUS FLUIDS: 2 liters of crystalloid. SPECIMENS: Cervix, uterus, right tube and left tube and ovary. FINDINGS: An enlarged fibroid uterus, normal bilateral tubes and ovaries. No significant adhesive disease. COMPLICATIONS: None. DESCRIPTION OF PROCEDURE: This patient was taken to the operating room where general anesthesia was placed. The patient was placed in the dorsal lithotomy position in Chong stirrups. The patient's abdomen and vagina both were prepped and draped in the normal sterile fashion and a Martinez catheter had been inserted under sterile technique. Upon my arrival, a timeout was performed. Once everyone agreed on the patient, the site, the procedure, the antibiotics, the procedure was initiated. A bivalve speculum was placed in the patient's vagina. A single-tooth tenaculum was used to grasp the anterior lip of the cervix. A 10 mL of 0.5% Marcaine with epinephrine was used to circumferentially inject around the cervix for both hemodissection and hemostatic purposes later. The Valtchev uterine manipulator was then placed through the endocervical os, locked on the single tooth tenaculum and the bivalve speculum was then removed. Top gloves were discarded and changed. Attention was then turned to the abdomen, where a supraumbilical skin incision was made with the scalpel. A curved Josiane was used to dissect through the subcuticular layer to the fascia. The 5 mm Visiport was used directly into the abdominal cavity. Opening patient pressure was 5-6 mmHg. Carbon dioxide gas was used to then appropriately insufflate the abdominal cavity to maintain a pressure of 15 mmHg. The patient was placed in Trendelenburg position. Right and left lower quadrant ports were placed after transilluminating the abdominal wall. There were no adhesions on the inside. Finding an area clear of any vasculature and placing a small incision and placing the 5 mm port through. A 4-5 mL of air was placed in the trocar cuffs of these. At this point, the scope was moved laterally to look at the umbilical port. Once it was in and clear, 4-5 mL of air was placed in this trocar cuff as well. The left tube and ovary were identified. This is the side the patient always has pain on and wanted it out, so we elevated it, found the ureter coursing low in the pelvis. We were able to go high on the infundibulopelvic ligament under the ovary well above the level of the ureter, cauterized and cut, taking the left tube and ovary per patient request, going up and crossing the left round ligament as well, cauterizing and cutting. The bladder flap was started on this side. On the right side, we elevated the right tube and ovary. We went below the tube above the ovary, leaving the right ovary per patient request, as it was normal and doing just a salpingectomy, then crossing the uteroovarian pedicle, cauterizing and cutting with the LigaSure, then crossing the right round ligament as well. The uterus was pushed cephalad and the bladder flap was elevated with the [place] and the monopolar hook was used to cauterize across like a hot knife and create the bladder flap and it was gently pulled down and created easily. Once this was connected on both sides and the bladder was down, the uterine vessels were obtained on the patient's right side, cauterizing and cutting and then staying inside this pedicle going down through the cardinal and broad ligament to the cervix. On the left side, the cervix was moved over. The bowel was very large and kind of just would not come out of the cul-de-sac. We got down as low as we could, but not as low as the right, but the uterus was completely free and there were no adhesions, so it was decided to go below at this point. All instruments were removed from the abdomen and attention was turned vaginally. The single tooth and Valtchev were removed. A weighted speculum was placed in the patient's vagina. Thyroid Amilcar clamps were placed on the anterior and posterior lips of the cervix respectively. A scalpel was used to make a circumferential incision in the cervix. An open Ray-Emily 4 x 4 was used to gently push up the anterior bladder peritoneum. Once it was pushed up, the anterior cul-de-sac had been entered that it was removed and the curved Pelkie was placed in the anterior cul-de-sac. Cervix was elevated in the posterior cul-de-sac. Peñaloza scissors were used to try to sharply enter. I was not positive, I was in, but I was right under the uterus, so I removed the short-weighted speculum and replaced it with the long Stephanie speculum right under the uterus. Curved Wallace clamps x 2 were placed on the patient's left uterosacral ligament where they were doubly clamped with curved Heaneys, cut with curved Peñaloza scissors and suture ligated x 2 with 0 Vicryl. Second one was taken through the vaginal cuff securing uterosacral ligament to the vaginal cuff. This was done on the right side as well, double clamping the uterosacrals with curved Wallace's, cutting with curved Peñaloza scissors, suture ligating x 2 with #0 Vicryl, taking the second one through the vaginal cuff securing uterosacral ligament to the vaginal cuff and cutting and passing the needle. There was some slight bleeding on the patient's left uterine. This was clamped very easily and tied off. At this point, the right angle clamp was taken around the remaining pedicle on the left side that the vaginal LigaSure was used to cauterize and cut the remaining pedicle. At this point, I could get all the way around anteriorly and then I got it around the right side as well. At this point, the cervix, uterus, right tube and left tube and ovary were delivered in total and passed off for permanent pathology. The anterior bladder peritoneum was initially grasped and sponge stick was used to examine the pedicles. Unfortunately, when I was burning the left pedicle, I did burn off the left uterosacral tags, but I still had my right, one, but not my left one. I then went back and put a stitch in posteriorly securing the posterior peritoneum to the vaginal cuff as well and tagged that with a curved Josiane and was able to examine all the pedicles which appeared to be dry, so 2-0 Vicryl was taken through. I did lose the anterior bladder peritoneum and was unable to find it again. She had a lot of redundant tissue to get through just below the cuff. The left uterosacral ligament, posterior peritoneum and right uterosacral ligament, thus closing the peritoneum in a pursestring like fashion. Once this was done, this was cut. The remaining uterosacral tag on the right was clipped as well as the posterior one. So I closed the cuff in an anterior to posterior running locked fashion with a full length 2-0 Vicryl and then it was tied as well. There was no active bleeding vaginally. The cuff looked hemostatic and dry, so all gloves were discarded and changed. The sponge and needle counts were correct x 2 by OR personnel before going above. The patient was placed back in Trendelenburg. Copious irrigation revealed hemostasis. The right and left pericolic gutters were clear. She just had a raw looking underneath the anterior bladder flap, so Tisseel was placed here and then Adair was placed in the cul-de-sac, but there was nothing running up at all. Again, the bowel made it very difficult to get a good visualization, but everything appeared to be dry, clear, fluid returned. Nothing running up the sides, placed Adair. The right and left lower quadrant ports, the balloons were deflated, they were removed under direct visualization. They were both hemostatic. Looking again. All of the Adair remained white, powdery, fresh and dry, and nothing was welling up at all in the cul-de-sac, so the gas was released from the umbilical port. It was also deflated and then removed. All three port sites were closed with 4-0 nylon at the skin and injected with local. The patient is currently being awakened from anesthesia. FAM OVALLE MD DR: PATIENCE/wallace JOB#: [id number] / [id number]
[2020-05-24] MEDS ORDERED: PROCHLORPERAZINE 10 MG/2 ML VIAL. ONE (10:36)
[2020-05-24] MEDS: PROCHLORPERAZINE 10 MG/2 ML VIAL. IV PRN ×2 (10:38→10:55)
[2020-05-24] MEDS ORDERED: HYDROmorphone 2 MG/ML VIAL ONE (11:08)
--- NOTE | 2020-05-24 11:30 | NUR ---
Pt transferred to room 331 per bed from PACU S/P [facility]. Pt alert to name but frequently drowsy. Assessment completed, dressings X3 to abdomen are all D/I. V pad with minimal drainage and mesh panties in place. IVF's infusing as ordered. Pt oriented to room and call light. Will continue to monitor and support.
[2020-05-24] MEDS: oxyCODONE/APAP 5/325 1 TAB TABLET PO PRN ×2 (18:14→22:15)
[2020-05-24] MEDS ORDERED: traZODone 50 MG TABLET. PO SCH (21:00)
[2020-05-25 00:30] VITALS: BP 129/74
[2020-05-25 03:15] VITALS: BP 123/77
[2020-05-25] MEDS ORDERED: LEVOTHYROXINE 112 MCG TABLET PO SCH (07:00)
[2020-05-25] MEDS: oxyCODONE/APAP 5/325 1 TAB TABLET PO PRN ×2 (07:04→17:00)
[2020-05-25] MEDS ORDERED: PANTOPRAZOLE 40 MG TABLET.DR. PO SCH (07:30)
[2020-05-25 07:54] LABS: GFR 70.7; POTASSIUM 3.7 mmol/L (3.5-5.1)
[2020-05-25 08:33] VITALS: BP 143/71
--- NOTE | 2020-05-25 08:46 | PDOC ---
SURGICAL PROGRESS NOTE DATE: 05/25/20 TIME: 08:42 Subjective Doing ok this am. Sitting up and just finished breakfast. had a mild headache yesterday but ok now. Voiding without catheter and ambulating well. No n/v just no flatus yet. Scant spotting when voiding Vital Signs Vital Signs Date Time Temp Pulse Resp B/P (MAP) Pulse Ox O2 Delivery O2 Flow Rate FiO2 05/25/20 08:37 78 143/71 05/25/20 08:33 98.8 18 95 Room Air 98.8 05/24/20 14:47 2.0 I&O Intake and Output 05/25/20 07:00 Intake Total 3821 ml Output Total 460 ml Balance 3361 ml Intake Oral 690 ml IV Total 2300 ml Other 831 ml Output Urine Total 100 ml Estimated Blood Loss 360 ml # Voids 1 PATIENT HAS A STALEY: No General: Alert, Oriented X3, Cooperative, No acute distress HEENT: Atraumatic Heart: Regular rate Abdomen: Soft, Other (all port sites c/d/i) Extremities: No clubbing, No cyanosis, No edema, No tenderness/swelling Skin: No rashes, No breakdown Neuro: Normal speech Psych/Mental Status: Mental status NL, Mood NL Labs Laboratory Tests Test 05/24/20 06:43 05/25/20 07:15 Bedside Urine HCG, Qualitative Hcg negative (Negative) Hematocrit 34.2 % (36.0-47.0) Sodium Level 140 mmol/L (136-145) Potassium Level 3.7 mmol/L (3.5-5.1) Chloride Level 105 mmol/L (98-107) Carbon Dioxide Level 26 mmol/L (21-32) Anion Gap 9 (6-14) Blood Urea Nitrogen 10 mg/dL (7-20) Creatinine 1.0 mg/dL (0.6-1.0) Estimated GFR (Cockcroft-Gault) 70.7 Glucose Level 86 mg/dL (70-99) Calcium Level 8.0 mg/dL (8.5-10.1) Laboratory Tests Test 05/25/20 07:15 Hematocrit 34.2 % (36.0-47.0) Sodium Level 140 mmol/L (136-145) Potassium Level 3.7 mmol/L (3.5-5.1) Chloride Level 105 mmol/L (98-107) Carbon Dioxide Level 26 mmol/L (21-32) Anion Gap 9 (6-14) Blood Urea Nitrogen 10 mg/dL (7-20) Creatinine 1.0 mg/dL (0.6-1.0) Estimated GFR (Cockcroft-Gault) 70.7 Glucose Level 86 mg/dL (70-99) Calcium Level 8.0 mg/dL (8.5-10.1) I have reviewed the following labs, vitals, nursing Cardiovascular: HTN Rheumatologic: Fibromyalgia Assessment/Plan POD#1 s/p LAVH/ LSO/right salpingectomy Routine PO care d/c to home later today NPV x 6 weeks light/limited activity x 2 weeks NO [address] for at least one week or while on narcotic pain meds keep scheduled follow up with me in one week already has narcotics at home ok to resume any home meds upon discharge call or return sooner for any other questions or concerns not limited to but including pain unrelieved with pain meds, increased or unexplained vaginal bleeding or T>100.4 Justicifation of Admission Dx: Justifications for Admission: Justification of Admission Dx: Yes FAM JIN MD May 25, 2020 08:46
--- NOTE | 2020-05-25 08:48 | PDOC3 ---
Discharge Summary Visit Information Date of Admission: May 24, 2020 Date of Discharge: May 25, 2020 Final Diagnosis menorrhagia, enlarged fibroid uterus Brief Hospital Course Allergies Allergies Coded Allergies Type Severity Reaction Last Updated Verified duloxetine Allergy Severe LIP SWELLING 05/24/20 Yes bupropion Allergy Intermediate Rash 05/24/20 Yes Vital Signs Vital Signs Date Time Temp Pulse Resp B/P (MAP) Pulse Ox O2 Delivery O2 Flow Rate FiO2 05/25/20 08:37 78 143/71 05/25/20 08:33 98.8 18 95 Room Air 98.8 05/24/20 14:47 2.0 Lab Results Laboratory Tests Test 05/24/20 06:43 05/25/20 07:15 Bedside Urine HCG, Qualitative Hcg negative (Negative) Hematocrit 34.2 % (36.0-47.0) Sodium Level 140 mmol/L (136-145) Potassium Level 3.7 mmol/L (3.5-5.1) Chloride Level 105 mmol/L (98-107) Carbon Dioxide Level 26 mmol/L (21-32) Anion Gap 9 (6-14) Blood Urea Nitrogen 10 mg/dL (7-20) Creatinine 1.0 mg/dL (0.6-1.0) Estimated GFR (Cockcroft-Gault) 70.7 Glucose Level 86 mg/dL (70-99) Calcium Level 8.0 mg/dL (8.5-10.1) Laboratory Tests Test 05/25/20 07:15 Hematocrit 34.2 % (36.0-47.0) Sodium Level 140 mmol/L (136-145) Potassium Level 3.7 mmol/L (3.5-5.1) Chloride Level 105 mmol/L (98-107) Carbon Dioxide Level 26 mmol/L (21-32) Anion Gap 9 (6-14) Blood Urea Nitrogen 10 mg/dL (7-20) Creatinine 1.0 mg/dL (0.6-1.0) Estimated GFR (Cockcroft-Gault) 70.7 Glucose Level 86 mg/dL (70-99) Calcium Level 8.0 mg/dL (8.5-10.1) Brief Hospital Course Ms. Benz is a 49 old female who presented with menorrhagia, enlarged fibroid uterus desiring definitive therapy. She underwent LAVH/LSO with right salpingectomy yesterday without complication. She is slower to move, but has had an unremarkable postoperative course. AF VSS, voiding without catheter, tolerating regular diet without n/v. Assessment Assessment POD#1 s/p LAVH/ LSO/right salpingectomy Routine PO care d/c to home later today NPV x 6 weeks light/limited activity x 2 [address] for at least one week or while on narcotic pain meds keep scheduled follow up with me in one week already has narcotics at home ok to resume any home meds upon discharge call or return sooner for any other questions or concerns not limited to but including pain unrelieved with pain meds, increased or unexplained vaginal bleeding or T>100.4 Discharge Information Condition at Discharge: Stable Follow Up: Weeks Disposition/Orders: D/C to Home Scheduled Chlorzoxazone (Chlorzoxazone) 250 Mg Tablet, 250 MG PO HS for MUSCLE RELAXER, (Reported) Entered as Reported by: HELDER SOLIS on 05/18/20 1328 Last Taken: Unknown Dose on 05/23/20 Last Action: HELD on 05/24/20737 by FAM JIN Cyanocobalamin (Vitamin B-12) (Vitamin B12) 5,000 Mcg Tab.rapdis, 10,000 MCG PO DAILY for supplement, (Reported) Entered as Reported by: BELLO HENRIQUEZ on 04/19/20 111 Last Taken: Unknown Dose on 05/16/20 Last Action: HELD on 05/24/20737 by FAM JIN Levothyroxine Sodium (Levothyroxine Sodium) 112 Mcg Tablet, 125 MCG PO DAILY for hypothyroid, (Reported) Entered as Reported by: Gracie Howard on 09/17/181935 Last Taken: Unknown Dose on 05/24/20 0530 Last Action: Continued on 05/24/20737 by FAM JIN Lisinopril/Hydrochlorothiazide (Lisinopril-Hctz 20-25 Mg Tab) 1 Each Tablet, 20- 25 MG PO DAILY for hypertension, (Reported) Entered as Reported by: Gracie Howard on 09/17/181935 Last Taken: Unknown Dose on 06/23/19 Last Action: Converted on 05/24/20737 by FAM JIN Meloxicam (Meloxicam) 15 Mg Tablet, 1 TAB PO DAILY for fibromyalgia for 30 Days, #30 Ref 0 (Reported) Entered as Reported by: BELLO HENRIQUEZ on 04/19/201117 Last Taken: Unknown Dose on 05/16/20 Last Action: HELD on 05/24/20737 by FAM JIN Pantoprazole Sodium (Protonix Packet) 40 Mg Granpkt.dr, 40 MG PO DAILY for gerd, (Reported) Entered as Reported by: Gracie Howard on 09/17/181935 Last Taken: Unknown Dose on 05/23/20 Last Action: Converted on 05/24/20737 by FAM JIN Trazodone Hcl (Trazodone Hcl) 50 Mg Tablet, 50 MG PO QHS for insomnia, (Reported) Entered as Reported by: Gracie Howard on 09/17/181935 Last Taken: Unknown Dose on 05/23/20 Last Action: Continued on 05/24/20737 by FAM JIN [vitamin d] , 5,000 PO DAILY for supplement, (Reported) Entered as Reported by: BELLO HENRIQUEZ on 04/19/201118 Last Taken: Unknown Dose on 05/16/20 Last Action: HELD on 05/24/20737 by FAM JIN Scheduled PRN Oxycodone HCl/Acetaminophen (Percocet 5-325 mg Tablet) 1 Each Tablet, 1-2 EACH PO PRN Q4-6HRS PRN for PAIN, #40 (Reported) Entered as Reported by: LUX FAUST on 04/23/20 0854 Last Taken: Unknown Dose on 05/16/20 Last Action: HELD on 05/24/20737 by FAM JIN Patient Instructions Patient Instructions POD#1 s/p LAVH/ LSO/right salpingectomy Routine PO care d/c to home later today NPV x 6 weeks light/limited activity x 2 weeks NO driving for at least one week or while on narcotic pain meds keep scheduled follow up with me in one week already has narcotics at home ok to resume any home meds upon discharge call or return sooner for any other questions or concerns not limited to but including pain unrelieved with pain meds, increased or unexplained vaginal bleeding or T>100.4 Justicifation of Admission Dx: Justifications for Admission: Justification of Admission Dx: Yes FAM JIN MD May 25, 2020 08:48
[2020-05-25] MEDS ORDERED: hydroCHLOROthiazide 25 MG TABLET PO SCH (09:00)
[2020-05-25] MEDS ORDERED: LISINOPRIL 20 MG TABLET PO SCH (09:00)
[2020-05-25 12:05] VITALS: BP 119/71
[2020-05-25 17:15] VITALS: BP 126/67
--- NOTE | 2020-05-25 18:05 | NUR ---
Discharge and follow up instructions reviewed and given to pt. Rx was given to pt prior to procedure and filled at left at home. Pt verbalized understanding and denied any questions, Pt taken out of the hospital per W/C with her daughter at her side.
--- NOTE | 2020-05-28 15:07 | PATHOLOGY ---
[facility] Accession Number: [id number] . 01 Material submitted: . uterus - UTERUS, CERVIX, LEFT TUBE AND OVARY, RIGHT TUBE . 01 Clinical history: . MENORRAGHIA FIBROIDS . 02 Diagnosis: Uterus and detached bilateral fallopian tubes and left ovary, hysterectomy with right salpingectomy and left salpingo-oophorectomy: - Leiomyomas, uterine corpus, multiple, the largest measuring 1.8 cm in greatest dimension, one of which shows extensive degenerative changes and calcification (uterine weight 117 grams). - Mild chronic cervicitis with focal squamous metaplasia. - Proliferative endometrium. - Paratubal cysts, bilateral. - Small simple serous cyst of left ovary. (JPM:froilan; 05/28/2020) [facility] 05/28/2020 1235 Local . 02 Comment: There is no atypia or evidence of malignancy. (JPM:froilan; 05/28/2020) . 02 Electronically signed: . Anthony Welsh MD, Pathologist NPI- [id number] . 01 Gross description: . The specimen is received in formalin labeled "Amarilys Benz, uterus, cervix, L tube and ovary, R tube". Received is a 117 g, 10.5 x 5.8 x 4.6 cm uterus with attached cervix, attached left adnexa weighing 8 g, and attached right fallopian tube weighing 3 g. The uterine serosa is pale russell and smooth in appearance. The 1.4 cm cervical os is surrounded by pink-russell, smooth to slightly disrupted ectocervical mucosa. The uterus is oriented using the peritoneal reflection and the anterior paracervical margin is inked black. The uterus is opened laterally to reveal a pink-russell, corrugated endocervical canal measuring 2.8 cm in length. The endometrial cavity is triangular measuring 5.6 cm in length by 2.2 cm in width. The endometrium is pink-russell, glistening in appearance and measures 0.1 cm in thickness. Serial sectioning reveals a russell-pink, trabeculated myometrium measuring up to 2.0 cm in thickness displaying multiple intramural fibroids, one of which is severely calcified, ranging in size from 0.5 to 1.8 cm. . The left adnexa consists of a fimbriated fallopian tube measuring 5.0 cm in length by up to 0.8 cm in diameter attached to a 2.7 x 1.8 x 1.3 cm ovary. There is an attached paratubal cyst identified measuring 0.1 cm filled with clear fluid. Sectioning through the fallopian tube reveals a patent lumen and the fallopian tube appears grossly unremarkable. Sectioning through the ovary reveals a single unilocular cystic structure measuring 0.7 cm filled with clear fluid. The remaining cut surfaces display pale russell, normal ovarian stroma. . The right fimbriated fallopian tube measures 5.7 cm in length by 0.6 cm in diameter. The serosal surface displays a single attached paratubal cyst measuring 0.2 cm. Sectioning reveals a patent lumen. The specimen is submitted representatively as follows: . A1 12:00 cervix A2 6:00 cervix A3 anterior endomyometrium A4 posterior endomyometrium A5 access representative section of calcified fibroid, following decalcification A6 access representative sections of additional fibroids A7 left adnexa A8 right fallopian tube. (CAA; 05/25/2020) [facility] 05/25/2020 1630 Local . 02 Pathologist provided ICD-10: N72, D25.9, N83.8, N83.202 . 02 CPT . 615970 Specimen Comment: A courtesy copy of this report has been sent to [phone], [phone] Specimen Comment: [id number] Specimen Comment: Report sent to / DR DYE Performed at: 01 [facility] [address], [place] [id number] MD Nimesh Jon MD Phone: [phone] Performed at: 02 [facility] [address] [place], [place] [id number] MD Anthony Welsh MD Phone: [phone]
== END 2020-05-25 18:05 | disposition home or self-care (01) ==
LOC: SURG 06:06 → OBSVTOIN 10:15 → INTOOBSV 10:15 → 3 NORTH 10:15 → UNDOADMOB 10:58
PROVIDERS: ADMIT Obstetrics & Gynecology; ATTEND Obstetrics & Gynecology
DX: N92.0 Excessive and frequent menstruation with regular cycle (principal); D25.9 Leiomyoma of uterus, unspecified
CPT/HCPCS: 36415; 58552; 80048; 81025; 85014; 86850; 86900; 86901; 96361; 96374; 96375; A7015; G0378; G0379; J0780; J1100; J1170; J1885; J2250; J2270; J2405; J2704; J2710; J3010; J3480; J3490; J7030; J7120

== ENCOUNTER → 2021-03-19 | Outpatient (CLI) | payer OTHER ==
[~2021-03-19] MED LIST changes: -CYAN50008 PO; +CYAN50009 PO; -LISI-334 PO; +LISI20TA18 PO; -ceFAZolin SODIUM 3 GM in IV DEXTROSE 5% 100ML 100 ML IV PRN
--- NOTE | 2021-03-19 16:48 | KCIC ---
XR LUMBAR SPINE 4+V 03/19/2021 4:16 PM Reason: LBP XS 4 DAYS, NO RECENT INJURY Comparison: MRI lumbar spine 03/10/2017 Technique: Lateral, oblique, AP and lumbosacral views of the lumbar spine. Findings: There are 5 nonrib-bearing vertebral bodies in the lumbar spine. When compared to the previ ous MRI this numbering system is different. The vertebral body heights are within normal limits. Ther e is approximately 7 mm of anterolisthesis of L5 on L6. There are severe degenerative changes of the L5-L6 right facet joint with neural foraminal encroachment mild left L5-L6 facet joint degenerative c hange. Mild facet joint change at the L6-S1 level. Impression: 1. No acute osseous abnormality. 2. Progressive degenerative change most prominent at the L5-L6 facet joints. There is also approximat mahin 7 mm anterolisthesis of L5 on L6 which is progressed from the comparison MRI. Please note that th e numbering system is different on this radiograph when compared to the MRI because there are 6 nonri b-bearing vertebral bodies in the lumbar spine (L4-5 level on the MRI is the L5-L6 level on this stud y because there is no definite rudimentary rib or transitional anatomy and MRIs are classically count ed from the S1 level as a reference). Electronically signed by: Stewart Cortes (03/19/2021 4:46 PM) [id number]
== END ==
LOC: KCIC 11:32
PROVIDERS: ATTEND Nurse Practitioner Family
DX: M47.817 Spondylosis without myelopathy or radiculopathy, lumbosacral region (principal); M43.16 Spondylolisthesis, lumbar region
CPT/HCPCS: 72110

== ENCOUNTER → 2021-08-06 | Outpatient (CLI) | payer OTHER ==
[~2021-08-06] MED LIST changes: -LISI1TAB20 PO; +LISI1TAB39 PO; +TIZA-75 PO; -TIZA4TAB2 PO
--- NOTE | 2021-08-06 16:45 | KCIC ---
Site ID: [id number] EXAMINATION: XR EXAM OF ANKLE_RIGHT 3VIEWS. HISTORY: 50 years Female Reason: Posterior ankle pain a couple of months. No injury. : . COMPARISON: None. FINDINGS: No fracture, dislocation or radiopaque foreign body. The joint spaces and articular surfaces appea r unremarkable. Inferior and posterior calcaneal spurs are seen. IMPRESSION: No acute process. Electronically signed by: Kelvin Monroe MD (08/06/2021 4:43 PM) [id number]
== END ==
LOC: KCIC 12:36
PROVIDERS: ATTEND Nurse Practitioner Family
DX: M77.31 Calcaneal spur, right foot (principal); M25.571 Pain in right ankle and joints of right foot
CPT/HCPCS: 73610